=== PATIENT | male | born 1945 | race Caucasian/White ===

== ENCOUNTER 2021-01-04 13:01 | Inpatient (IN) | payer MEDICARE ==
[~2021-01-04] VITALS: Ht 177.8 cm; Wt 87.1 kg
[2021-01-04 19:00] VITALS: BP 144/88
[2021-01-04] MEDS ORDERED: MELATONIN 3 MG TABLET PO PRN (19:45)
[2021-01-04] MEDS ORDERED: ACETAMINOPHEN 325 MG TABLET PO PRN (19:45)
[2021-01-04] MEDS: ATORVASTATIN CALCIUM 40 MG TABLET PO SCH (21:10)
[2021-01-04 22:09] VITALS: BP 144/88
[2021-01-05] MEDS ORDERED: PNEUMOCOCCAL VACCINE POLYVALENT 0.5 ML VIAL [PPSV23] IM. ONE (00:15)
[2021-01-05] MEDS: ETHYL ALCOHOL 62% ANTISEPTIC NASAL INHALANT 0.6 ML AMPUL NASAL SCH ×3 (00:44→20:58)
[2021-01-05 01:15] VITALS: BP 135/80
[2021-01-05 08:30] VITALS: BP 133/78
[2021-01-05] MEDS: ASPIRIN 81 MG CHEWABLE TABLET PO SCH (08:48)
[2021-01-05] MEDS: CLOPIDOGREL BISULFATE 75 MG TABLET PO SCH (08:48)
[2021-01-05] MEDS: ENOXAPARIN SODIUM 40 MG/0.4 ML PF SYRINGE SQ SCH (08:48)
[2021-01-05 09:18] LABS: BASOPHILS % (AUTO) 0.3 % (0.0-2.0); EOSINOPHILS % (AUTO) 0.5 % (1.0-6.0); HEMATOCRIT 47.5 % (41-53); HEMOGLOBIN 15.9 g/dL (13.5-17.5); LYMPHOCYTES # (AUTO) 1.1 K/uL (1.0-4.8); LYMPHOCYTES % (AUTO) 8.6 % (22.0-44.0); MEAN CORPUSCULAR HEMOGLOBIN 30.6 pg (26.0-34.0); MEAN CORPUSCULAR HGB CONC 33.6 G/dL (31.0-37.0); MEAN CORPUSCULAR VOLUME 91 fL (80-100); MONOCYTES # (AUTO) 0.9 K/uL (0.1-1.0); MONOCYTES % (AUTO) 6.8 % (2.0-9.0); NEUTROPHILS # (AUTO) 10.8 K/uL (1.8-7.7); NEUTROPHILS % (AUTO) 83.8 % (40.0-70.0); PLATELET COUNT (AUTO) 253 K/uL (150-450); RED BLOOD CELL COUNT(AUTO) 5.21 MIL/uL (4.50-5.90); RED CELL DISTRIBUTION WIDTH 13.7 % (11.5-14.5)
[2021-01-05 09:30] LABS: ALBUMIN 3.4 g/dL (3.4-5.0); BILIRUBIN,TOTAL 1.3 mg/dL (0.1-1.0); CALCIUM, TOTAL 8.5 mg/dL (8.8-10.5); CREATININE 1.2 mg/dL (0.60-1.30); POTASSIUM 3.7 mmol/L (3.5-5.1)
[2021-01-05 16:02] VITALS: BP 138/89
[2021-01-05] MEDS: ATORVASTATIN CALCIUM 40 MG TABLET PO SCH (20:57)
[2021-01-06] VITALS: BP 141/82
[2021-01-06 09:30] VITALS: BP 130/68
[2021-01-06] MEDS: ETHYL ALCOHOL 62% ANTISEPTIC NASAL INHALANT 0.6 ML AMPUL NASAL SCH ×2 (09:52→21:04)
[2021-01-06] MEDS: CLOPIDOGREL BISULFATE 75 MG TABLET PO SCH (09:53)
[2021-01-06] MEDS: ASPIRIN 81 MG CHEWABLE TABLET PO SCH (09:53)
[2021-01-06] MEDS: ENOXAPARIN SODIUM 40 MG/0.4 ML PF SYRINGE SQ SCH (09:54)
[2021-01-06 16:00] VITALS: BP 126/74
[2021-01-06] MEDS: ATORVASTATIN CALCIUM 40 MG TABLET PO SCH (21:05)
[2021-01-07] VITALS: BP 137/74
[2021-01-07 08:10] VITALS: BP 119/79
[2021-01-07] MEDS: CLOPIDOGREL BISULFATE 75 MG TABLET PO SCH (08:36)
[2021-01-07] MEDS: ASPIRIN 81 MG CHEWABLE TABLET PO SCH (08:36)
[2021-01-07] MEDS: ENOXAPARIN SODIUM 40 MG/0.4 ML PF SYRINGE SQ SCH (08:37)
[2021-01-07] MEDS: ETHYL ALCOHOL 62% ANTISEPTIC NASAL INHALANT 0.6 ML AMPUL NASAL SCH ×2 (08:37→20:10)
[2021-01-07 11:01] LABS: APPEARANCE,URINE CLOUDY (CLEAR); BILIRUBIN,URINE NEGATIVE (NEGATIVE); GLUCOSE, URINE (UA) NEGATIVE (NEGATIVE); KETONES,URINE NEGATIVE (NEGATIVE); LEUKOCYTE ESTERASE ,URINE TRACE (NEGATIVE); NITRATE,URINE NEGATIVE (NEGATIVE); OCCULT BLOOD,URINE LARGE (NEGATIVE); PH,URINE 5.5 (5.0-8.0); PROTEIN,URINE TRACE (NEGATIVE); UROBILINOGEN,URINE 0.2 mg/dL (<=1.0)
[2021-01-07 11:18] LABS: BACTERIA,URINE Moderate /HPF (None Seen); RBC,URINE 51-100 /HPF (0-2)
[2021-01-07 16:10] VITALS: BP 121/79
[2021-01-07] MEDS: ATORVASTATIN CALCIUM 40 MG TABLET PO SCH (20:10)
[2021-01-08 00:32] VITALS: BP 141/76
[2021-01-08 08:20] VITALS: BP 120/69
[2021-01-08] MEDS: ASPIRIN 81 MG CHEWABLE TABLET PO SCH (08:36)
[2021-01-08] MEDS: DOCUSATE SODIUM 100 MG CAPSULE PO SCH ×2 (08:36→20:00)
[2021-01-08] MEDS: CLOPIDOGREL BISULFATE 75 MG TABLET PO SCH (08:36)
[2021-01-08] MEDS: ENOXAPARIN SODIUM 40 MG/0.4 ML PF SYRINGE SQ SCH (08:37)
[2021-01-08] MEDS: ETHYL ALCOHOL 62% ANTISEPTIC NASAL INHALANT 0.6 ML AMPUL NASAL SCH ×2 (12:03→20:00)
[2021-01-08 12:22] LABS: BASOPHILS % (AUTO) 0.8 % (0.0-2.0); EOSINOPHILS % (AUTO) 2.6 % (1.0-6.0); HEMATOCRIT 45.9 % (41-53); HEMOGLOBIN 15.4 g/dL (13.5-17.5); LYMPHOCYTES # (AUTO) 1.4 K/uL (1.0-4.8); LYMPHOCYTES % (AUTO) 17.3 % (22.0-44.0); MEAN CORPUSCULAR HEMOGLOBIN 30.3 pg (26.0-34.0); MEAN CORPUSCULAR HGB CONC 33.5 G/dL (31.0-37.0); MEAN CORPUSCULAR VOLUME 91 fL (80-100); MONOCYTES % (AUTO) 12.3 % (2.0-9.0); NEUTROPHILS # (AUTO) 5.4 K/uL (1.8-7.7); PLATELET COUNT (AUTO) 235 K/uL (150-450); RED BLOOD CELL COUNT(AUTO) 5.07 MIL/uL (4.50-5.90); RED CELL DISTRIBUTION WIDTH 13.4 % (11.5-14.5)
[2021-01-08 12:37] LABS: ALBUMIN 3.2 g/dL (3.4-5.0); BILIRUBIN,TOTAL 1.1 mg/dL (0.1-1.0); CALCIUM, TOTAL 8.4 mg/dL (8.8-10.5); CREATININE 1.29 mg/dL (0.60-1.30); POTASSIUM 3.5 mmol/L (3.5-5.1); TOTAL PROTEIN, SERUM 6.9 g/dL (6.4-8.2)
[2021-01-08 16:26] VITALS: BP 133/85
[2021-01-08] MEDS: ATORVASTATIN CALCIUM 40 MG TABLET PO SCH (20:01)
[2021-01-08] MEDS ORDERED: SENNA 187 MG TABLET PO SCH (21:00)
[2021-01-09 04:30] VITALS: BP 135/75
[2021-01-09] MEDS: ENOXAPARIN SODIUM 40 MG/0.4 ML PF SYRINGE SQ SCH (08:01)
[2021-01-09] MEDS: CLOPIDOGREL BISULFATE 75 MG TABLET PO SCH (08:01)
[2021-01-09] MEDS: ASPIRIN 81 MG CHEWABLE TABLET PO SCH (08:02)
[2021-01-09] MEDS: ETHYL ALCOHOL 62% ANTISEPTIC NASAL INHALANT 0.6 ML AMPUL NASAL SCH ×2 (08:02→20:39)
[2021-01-09] MEDS: DOCUSATE SODIUM 100 MG CAPSULE PO SCH ×2 (08:02→20:16)
[2021-01-09 16:11] VITALS: BP 117/78
[2021-01-09 16:20] VITALS: BP 137/86
[2021-01-09] MEDS: ATORVASTATIN CALCIUM 40 MG TABLET PO SCH (20:16)
[2021-01-09] MEDS: SENNA 187 MG TABLET PO SCH (20:17)
[2021-01-10] VITALS: BP 140/68
[2021-01-10 08:00] VITALS: BP 128/78
[2021-01-10] MEDS: ASPIRIN 81 MG CHEWABLE TABLET PO SCH (08:19)
[2021-01-10] MEDS: DOCUSATE SODIUM 100 MG CAPSULE PO SCH ×2 (08:19→20:25)
[2021-01-10] MEDS: ENOXAPARIN SODIUM 40 MG/0.4 ML PF SYRINGE SQ SCH (08:19)
[2021-01-10] MEDS: CLOPIDOGREL BISULFATE 75 MG TABLET PO SCH (08:19)
[2021-01-10] MEDS: ETHYL ALCOHOL 62% ANTISEPTIC NASAL INHALANT 0.6 ML AMPUL NASAL SCH ×2 (09:00→20:24)
[2021-01-10] MEDS: ATORVASTATIN CALCIUM 40 MG TABLET PO SCH (20:25)
[2021-01-10] MEDS: SENNA 187 MG TABLET PO SCH (20:25)
[2021-01-10] MEDS: MIRTAZAPINE 15 MG TABLET PO SCH (20:26)
[2021-01-10 23:19] VITALS: BP 125/75
[2021-01-11] VITALS: BP 132/76
[2021-01-11] MEDS: ETHYL ALCOHOL 62% ANTISEPTIC NASAL INHALANT 0.6 ML AMPUL NASAL SCH ×2 (08:09→21:00)
[2021-01-11] MEDS: ASPIRIN 81 MG CHEWABLE TABLET PO SCH (08:13)
[2021-01-11] MEDS: DOCUSATE SODIUM 100 MG CAPSULE PO SCH ×2 (08:13→21:12)
[2021-01-11] MEDS: CLOPIDOGREL BISULFATE 75 MG TABLET PO SCH (08:13)
[2021-01-11] MEDS: ENOXAPARIN SODIUM 40 MG/0.4 ML PF SYRINGE SQ SCH (08:14)
[2021-01-11 09:17] VITALS: BP 120/82
[2021-01-11 16:02] VITALS: BP 139/100
[2021-01-11] MEDS: MIRTAZAPINE 15 MG TABLET PO SCH (21:00)
[2021-01-11] MEDS: SENNA 187 MG TABLET PO SCH (21:13)
[2021-01-11] MEDS: ATORVASTATIN CALCIUM 40 MG TABLET PO SCH (21:13)
[2021-01-12] VITALS: BP 145/81
[2021-01-12] MEDS: DOCUSATE SODIUM 100 MG CAPSULE PO SCH ×2 (08:34→20:51)
[2021-01-12] MEDS: CLOPIDOGREL BISULFATE 75 MG TABLET PO SCH (08:34)
[2021-01-12] MEDS: ASPIRIN 81 MG CHEWABLE TABLET PO SCH (08:35)
[2021-01-12] MEDS: ENOXAPARIN SODIUM 40 MG/0.4 ML PF SYRINGE SQ SCH (08:36)
[2021-01-12 09:00] VITALS: BP 127/71
[2021-01-12] MEDS: ETHYL ALCOHOL 62% ANTISEPTIC NASAL INHALANT 0.6 ML AMPUL NASAL SCH ×2 (09:00→20:51)
[2021-01-12] MEDS: FOLIC ACID 1 MG TABLET PO SCH (13:20)
[2021-01-12] MEDS: THIAMINE 100 MG TABLET PO SCH (13:21)
[2021-01-12 16:04] VITALS: BP 140/82
[2021-01-12] MEDS: SENNA 187 MG TABLET PO SCH (20:51)
[2021-01-12] MEDS: ATORVASTATIN CALCIUM 40 MG TABLET PO SCH (20:51)
[2021-01-12] MEDS: MIRTAZAPINE 15 MG TABLET PO SCH (20:54)
[2021-01-13 07:00] VITALS: BP 137/95
[2021-01-13] MEDS: ETHYL ALCOHOL 62% ANTISEPTIC NASAL INHALANT 0.6 ML AMPUL NASAL SCH ×2 (10:15→20:05)
[2021-01-13] MEDS: ASPIRIN 81 MG CHEWABLE TABLET PO SCH (10:17)
[2021-01-13] MEDS: FOLIC ACID 1 MG TABLET PO SCH (10:19)
[2021-01-13] MEDS: DOCUSATE SODIUM 100 MG CAPSULE PO SCH ×2 (10:19→20:01)
[2021-01-13] MEDS: CLOPIDOGREL BISULFATE 75 MG TABLET PO SCH (10:19)
[2021-01-13] MEDS: THIAMINE 100 MG TABLET PO SCH (10:20)
[2021-01-13] MEDS: ENOXAPARIN SODIUM 40 MG/0.4 ML PF SYRINGE SQ SCH (10:20)
[2021-01-13 16:01] VITALS: BP 133/96
[2021-01-13] MEDS: SENNA 187 MG TABLET PO SCH (20:01)
[2021-01-13] MEDS: MIRTAZAPINE 15 MG TABLET PO SCH (20:02)
[2021-01-13] MEDS: ATORVASTATIN CALCIUM 40 MG TABLET PO SCH (20:02)
[2021-01-14] VITALS: BP 123/77
[2021-01-14] MEDS: ASPIRIN 81 MG CHEWABLE TABLET PO SCH (07:57)
[2021-01-14] MEDS: FOLIC ACID 1 MG TABLET PO SCH (07:57)
[2021-01-14] MEDS: THIAMINE 100 MG TABLET PO SCH (07:57)
[2021-01-14] MEDS: DOCUSATE SODIUM 100 MG CAPSULE PO SCH ×2 (07:57→20:21)
[2021-01-14] MEDS: ETHYL ALCOHOL 62% ANTISEPTIC NASAL INHALANT 0.6 ML AMPUL NASAL SCH ×2 (07:57→20:32)
[2021-01-14] MEDS: ENOXAPARIN SODIUM 40 MG/0.4 ML PF SYRINGE SQ SCH (07:57)
[2021-01-14] MEDS: CLOPIDOGREL BISULFATE 75 MG TABLET PO SCH (07:57)
[2021-01-14 08:42] VITALS: BP 128/79
[2021-01-14 16:09] VITALS: BP 132/76
[2021-01-14] MEDS: SENNA 187 MG TABLET PO SCH (20:21)
[2021-01-14] MEDS: ATORVASTATIN CALCIUM 40 MG TABLET PO SCH (20:21)
[2021-01-14] MEDS: MIRTAZAPINE 15 MG TABLET PO SCH (20:21)
[2021-01-15 00:25] VITALS: BP 145/80
[2021-01-15] MEDS: ETHYL ALCOHOL 62% ANTISEPTIC NASAL INHALANT 0.6 ML AMPUL NASAL SCH ×2 (08:33→20:16)
[2021-01-15] MEDS: FOLIC ACID 1 MG TABLET PO SCH (08:34)
[2021-01-15] MEDS: THIAMINE 100 MG TABLET PO SCH (08:34)
[2021-01-15] MEDS: ASPIRIN 81 MG CHEWABLE TABLET PO SCH (08:34)
[2021-01-15] MEDS: DOCUSATE SODIUM 100 MG CAPSULE PO SCH ×2 (08:34→20:17)
[2021-01-15] MEDS: CLOPIDOGREL BISULFATE 75 MG TABLET PO SCH (08:35)
[2021-01-15] MEDS: ENOXAPARIN SODIUM 40 MG/0.4 ML PF SYRINGE SQ SCH (08:36)
[2021-01-15 09:30] VITALS: BP 124/80
[2021-01-15 12:26] LABS: ALBUMIN 3.5 g/dL (3.4-5.0); BILIRUBIN,TOTAL 1.1 mg/dL (0.1-1.0); CALCIUM, TOTAL 9.1 mg/dL (8.8-10.5); CREATININE 1.25 mg/dL (0.60-1.30); POTASSIUM 4.1 mmol/L (3.5-5.1); TOTAL PROTEIN, SERUM 7.4 g/dL (6.4-8.2)
[2021-01-15 16:10] VITALS: BP 121/84
[2021-01-15] MEDS: MIRTAZAPINE 15 MG TABLET PO SCH (20:15)
[2021-01-15] MEDS: SENNA 187 MG TABLET PO SCH (20:17)
[2021-01-15] MEDS: ATORVASTATIN CALCIUM 40 MG TABLET PO SCH (20:17)
[2021-01-16 04:00] VITALS: BP 124/75
[2021-01-16 08:59] VITALS: BP 119/77
[2021-01-16] MEDS: ETHYL ALCOHOL 62% ANTISEPTIC NASAL INHALANT 0.6 ML AMPUL NASAL SCH ×2 (09:01→19:40)
[2021-01-16] MEDS: DOCUSATE SODIUM 100 MG CAPSULE PO SCH ×2 (09:01→19:28)
[2021-01-16] MEDS: ASPIRIN 81 MG CHEWABLE TABLET PO SCH (09:01)
[2021-01-16] MEDS: CLOPIDOGREL BISULFATE 75 MG TABLET PO SCH (09:02)
[2021-01-16] MEDS: THIAMINE 100 MG TABLET PO SCH (09:02)
[2021-01-16] MEDS: FOLIC ACID 1 MG TABLET PO SCH (09:02)
[2021-01-16] MEDS: ENOXAPARIN SODIUM 40 MG/0.4 ML PF SYRINGE SQ SCH (09:03)
[2021-01-16 16:03] VITALS: BP 123/82
[2021-01-16] MEDS: MIRTAZAPINE 15 MG TABLET PO SCH (19:28)
[2021-01-16] MEDS: ATORVASTATIN CALCIUM 40 MG TABLET PO SCH (19:40)
[2021-01-16] MEDS: SENNA 187 MG TABLET PO SCH (19:40)
[2021-01-16] MEDS ORDERED: ATOR40TA28 PO (21:58)
[2021-01-16] MEDS ORDERED: ASPI-1450 PO (21:58)
[2021-01-16] MEDS ORDERED: CLOP75TA60 PO (21:58)
[2021-01-16] MEDS ORDERED: DOCU-270 PO (21:59)
[2021-01-16] MEDS ORDERED: FOLI-130 PO (22:02)
[2021-01-16] MEDS ORDERED: THIA100T80 PO (22:03)
[2021-01-17] VITALS: BP 133/76
[2021-01-17] MEDS: THIAMINE 100 MG TABLET PO SCH (08:05)
[2021-01-17] MEDS: CLOPIDOGREL BISULFATE 75 MG TABLET PO SCH (08:05)
[2021-01-17] MEDS: ENOXAPARIN SODIUM 40 MG/0.4 ML PF SYRINGE SQ SCH (08:05)
[2021-01-17] MEDS: FOLIC ACID 1 MG TABLET PO SCH (08:05)
[2021-01-17] MEDS: ASPIRIN 81 MG CHEWABLE TABLET PO SCH (08:05)
[2021-01-17] MEDS: ETHYL ALCOHOL 62% ANTISEPTIC NASAL INHALANT 0.6 ML AMPUL NASAL SCH ×2 (08:06→20:23)
[2021-01-17] MEDS: DOCUSATE SODIUM 100 MG CAPSULE PO SCH ×2 (08:06→20:23)
[2021-01-17 08:16] VITALS: BP 130/77
[2021-01-17 16:39] VITALS: BP 134/88
[2021-01-17] MEDS: ATORVASTATIN CALCIUM 40 MG TABLET PO SCH (20:23)
[2021-01-17] MEDS: SENNA 187 MG TABLET PO SCH (20:23)
[2021-01-17] MEDS: MIRTAZAPINE 15 MG TABLET PO SCH (20:24)
[2021-01-18] VITALS: BP 136/86
[2021-01-18] MEDS: ETHYL ALCOHOL 62% ANTISEPTIC NASAL INHALANT 0.6 ML AMPUL NASAL SCH ×2 (08:04→21:04)
[2021-01-18] MEDS: DOCUSATE SODIUM 100 MG CAPSULE PO SCH ×2 (08:06→21:04)
[2021-01-18] MEDS: ASPIRIN 81 MG CHEWABLE TABLET PO SCH (08:06)
[2021-01-18] MEDS: ENOXAPARIN SODIUM 40 MG/0.4 ML PF SYRINGE SQ SCH (08:07)
[2021-01-18] MEDS: THIAMINE 100 MG TABLET PO SCH (08:07)
[2021-01-18] MEDS: FOLIC ACID 1 MG TABLET PO SCH (08:07)
[2021-01-18] MEDS: CLOPIDOGREL BISULFATE 75 MG TABLET PO SCH (08:07)
[2021-01-18 09:30] VITALS: BP 140/80
[2021-01-18 15:20] VITALS: BP 122/80
[2021-01-18] MEDS: MIRTAZAPINE 15 MG TABLET PO SCH (20:20)
[2021-01-18] MEDS: SENNA 187 MG TABLET PO SCH (21:03)
[2021-01-18] MEDS: ATORVASTATIN CALCIUM 40 MG TABLET PO SCH (21:03)
[2021-01-19] VITALS: BP 127/66
[2021-01-19] MEDS: ENOXAPARIN SODIUM 40 MG/0.4 ML PF SYRINGE SQ SCH (08:03)
[2021-01-19] MEDS: ETHYL ALCOHOL 62% ANTISEPTIC NASAL INHALANT 0.6 ML AMPUL NASAL SCH ×2 (08:03→20:01)
[2021-01-19] MEDS: FOLIC ACID 1 MG TABLET PO SCH (08:03)
[2021-01-19] MEDS: ASPIRIN 81 MG CHEWABLE TABLET PO SCH (08:04)
[2021-01-19] MEDS: CLOPIDOGREL BISULFATE 75 MG TABLET PO SCH (08:04)
[2021-01-19] MEDS: THIAMINE 100 MG TABLET PO SCH (08:04)
[2021-01-19] MEDS: DOCUSATE SODIUM 100 MG CAPSULE PO SCH ×2 (08:04→19:59)
[2021-01-19 15:53] VITALS: BP 107/78
[2021-01-19 16:05] VITALS: BP 138/85
[2021-01-19] MEDS: SENNA 187 MG TABLET PO SCH (19:59)
[2021-01-19] MEDS: ATORVASTATIN CALCIUM 40 MG TABLET PO SCH (19:59)
[2021-01-19] MEDS: MIRTAZAPINE 15 MG TABLET PO SCH (20:05)
[2021-01-20 00:14] VITALS: BP 126/77
[2021-01-20 09:00] VITALS: BP 141/77
[2021-01-20] MEDS: DOCUSATE SODIUM 100 MG CAPSULE PO SCH ×2 (09:00→20:21)
[2021-01-20] MEDS: THIAMINE 100 MG TABLET PO SCH (09:19)
[2021-01-20] MEDS: ETHYL ALCOHOL 62% ANTISEPTIC NASAL INHALANT 0.6 ML AMPUL NASAL SCH ×2 (09:19→20:21)
[2021-01-20] MEDS: ENOXAPARIN SODIUM 40 MG/0.4 ML PF SYRINGE SQ SCH (09:19)
[2021-01-20] MEDS: CLOPIDOGREL BISULFATE 75 MG TABLET PO SCH (09:19)
[2021-01-20] MEDS: FOLIC ACID 1 MG TABLET PO SCH (09:19)
[2021-01-20] MEDS: ASPIRIN 81 MG CHEWABLE TABLET PO SCH (09:19)
[2021-01-20 16:15] VITALS: BP 126/91
[2021-01-20] MEDS: SENNA 187 MG TABLET PO SCH (20:21)
[2021-01-20] MEDS: ATORVASTATIN CALCIUM 40 MG TABLET PO SCH (20:21)
[2021-01-20] MEDS: MIRTAZAPINE 15 MG TABLET PO SCH (20:22)
[2021-01-21 03:11] VITALS: BP 123/86
[2021-01-21] MEDS: ETHYL ALCOHOL 62% ANTISEPTIC NASAL INHALANT 0.6 ML AMPUL NASAL SCH ×2 (09:10→20:09)
[2021-01-21] MEDS: ASPIRIN 81 MG CHEWABLE TABLET PO SCH (09:11)
[2021-01-21] MEDS: CLOPIDOGREL BISULFATE 75 MG TABLET PO SCH (09:11)
[2021-01-21] MEDS: FOLIC ACID 1 MG TABLET PO SCH (09:11)
[2021-01-21] MEDS: DOCUSATE SODIUM 100 MG CAPSULE PO SCH ×2 (09:11→20:10)
[2021-01-21] MEDS: THIAMINE 100 MG TABLET PO SCH (09:11)
[2021-01-21 09:18] VITALS: BP 130/77
[2021-01-21 10:54] LABS: BASOPHILS % (AUTO) 1.1 % (0.0-2.0); EOSINOPHILS % (AUTO) 2.4 % (1.0-6.0); HEMATOCRIT 46.4 % (41-53); HEMOGLOBIN 15.4 g/dL (13.5-17.5); LYMPHOCYTES # (AUTO) 1.5 K/uL (1.0-4.8); LYMPHOCYTES % (AUTO) 17.9 % (22.0-44.0); MEAN CORPUSCULAR HEMOGLOBIN 29.9 pg (26.0-34.0); MEAN CORPUSCULAR HGB CONC 33.2 G/dL (31.0-37.0); MEAN CORPUSCULAR VOLUME 90 fL (80-100); MONOCYTES # (AUTO) 0.8 K/uL (0.1-1.0); MONOCYTES % (AUTO) 10.1 % (2.0-9.0); NEUTROPHILS # (AUTO) 5.6 K/uL (1.8-7.7); NEUTROPHILS % (AUTO) 68.5 % (40.0-70.0); PLATELET COUNT (AUTO) 317 K/uL (150-450); RED BLOOD CELL COUNT(AUTO) 5.14 MIL/uL (4.50-5.90); RED CELL DISTRIBUTION WIDTH 13.1 % (11.5-14.5)
[2021-01-21 11:06] LABS: ANION GAP 5 mmol/L (8-16); CALCIUM, TOTAL 9.4 mg/dL (8.8-10.5); CARBON DIOXIDE 30 mmol/L (22-29); CHLORIDE 103 mmol/L (98-107); CREATININE 1.12 mg/dL (0.60-1.30); GLUCOSE,RANDOM 97 mg/dL (70-110); SODIUM SERUM 138 mmol/L (136-145); UREA NITROGEN, BLOOD 19 mg/dL (7-18)
[2021-01-21 11:07] LABS: GLOMERULAR FILTR. RATE CALC > 60 mL/min (>60)
[2021-01-21 16:30] VITALS: BP 131/89
[2021-01-21 20:03] LABS: APPEARANCE,URINE CLEAR (CLEAR); BILIRUBIN,URINE NEGATIVE (NEGATIVE); GLUCOSE, URINE (UA) NEGATIVE (NEGATIVE); KETONES,URINE NEGATIVE (NEGATIVE); LEUKOCYTE ESTERASE ,URINE NEGATIVE (NEGATIVE); NITRATE,URINE NEGATIVE (NEGATIVE); OCCULT BLOOD,URINE LARGE (NEGATIVE); PH,URINE 5.5 (5.0-8.0); PROTEIN,URINE NEGATIVE (NEGATIVE); UROBILINOGEN,URINE 0.2 mg/dL (<=1.0)
[2021-01-21] MEDS: ATORVASTATIN CALCIUM 40 MG TABLET PO SCH (20:10)
[2021-01-21] MEDS: SENNA 187 MG TABLET PO SCH (20:11)
[2021-01-21] MEDS: MIRTAZAPINE 15 MG TABLET PO SCH (20:15)
[2021-01-21 20:45] LABS: BACTERIA,URINE None Seen /HPF (None Seen)
[2021-01-21 20:46] LABS: SQUAMOUS EPITHELIAL CELL,UR Rare /LPF (None Seen)
[2021-01-22] VITALS: BP 131/82
[2021-01-22 08:28] VITALS: BP 124/76
[2021-01-22] MEDS: ASPIRIN 81 MG CHEWABLE TABLET PO SCH (08:56)
[2021-01-22] MEDS: THIAMINE 100 MG TABLET PO SCH (08:56)
[2021-01-22] MEDS: DOCUSATE SODIUM 100 MG CAPSULE PO SCH ×2 (08:57→20:25)
[2021-01-22] MEDS: CLOPIDOGREL BISULFATE 75 MG TABLET PO SCH (08:57)
[2021-01-22] MEDS: FOLIC ACID 1 MG TABLET PO SCH (08:57)
[2021-01-22] MEDS: ETHYL ALCOHOL 62% ANTISEPTIC NASAL INHALANT 0.6 ML AMPUL NASAL SCH ×2 (08:57→20:24)
[2021-01-22] MEDS ORDERED: ASPI-1450 PO (16:31)
[2021-01-22 16:50] VITALS: BP 139/81
[2021-01-22] MEDS: ATORVASTATIN CALCIUM 40 MG TABLET PO SCH (20:24)
[2021-01-22] MEDS: SENNA 187 MG TABLET PO SCH (20:25)
[2021-01-22] MEDS: MIRTAZAPINE 15 MG TABLET PO SCH (21:00)
[2021-01-23] VITALS: BP 145/73
[2021-01-23 09:02] VITALS: BP 124/83
[2021-01-23] MEDS: ASPIRIN 81 MG CHEWABLE TABLET PO SCH (09:32)
[2021-01-23] MEDS: DOCUSATE SODIUM 100 MG CAPSULE PO SCH (09:33)
[2021-01-23] MEDS: FOLIC ACID 1 MG TABLET PO SCH (09:33)
[2021-01-23] MEDS: CLOPIDOGREL BISULFATE 75 MG TABLET PO SCH (09:33)
[2021-01-23] MEDS: THIAMINE 100 MG TABLET PO SCH (09:33)
[2021-01-23] MEDS: ETHYL ALCOHOL 62% ANTISEPTIC NASAL INHALANT 0.6 ML AMPUL NASAL SCH (09:33)
[2021-01-23 13:40] VITALS: BP 119/81
== END 2021-01-23 13:50 | DRG 56 ==
LOC: 2WR 18:58
PROVIDERS: ADMIT Physical Medicine & Rehabilitation; ATTEND Physical Medicine & Rehabilitation
DX: I69.351 Hemiplegia and hemiparesis following cerebral infarction affecting right dominant side (principal); I63.9 Cerebral infarction, unspecified; R47.01 Aphasia; K59.2 Neurogenic bowel, not elsewhere classified; R13.10 Dysphagia, unspecified; N31.9 Neuromuscular dysfunction of bladder, unspecified; R26.89 Other abnormalities of gait and mobility; I10 Essential (primary) hypertension; H91.92 Unspecified hearing loss, left ear; D72.829 Elevated white blood cell count, unspecified; N18.9 Chronic kidney disease, unspecified; I12.9 Hypertensive chronic kidney disease with stage 1 through stage 4 chronic kidney disease, or unspecified chronic kidney disease; R31.29 Other microscopic hematuria; Z72.89 Other problems related to lifestyle
CPT/HCPCS: 74230; 80048; 80053; 81001; 85025; 87081; 87086; 92507; 92523; 92526; 92611; 93970; 97110; 97112; 97116; 97163; 97166; 97530; 97535; 99366; J1650